=== PATIENT | male | born 1990 | race Asian ===

== ENCOUNTER 2016-04-27 09:24 | Emergency (ER) | payer OTHER ==
[~2016-04-27] VITALS: Ht 165.1 cm; Wt 61.0 kg
[2016-04-27 09:39] VITALS: Ht 165.1 cm; Wt 61.0 kg
--- NOTE | 2016-04-27 10:31 | ERD ---
ER Documentation Chief Complaint Date/Time DATE: 04/27/16 TIME: 10:27 Chief Complaint Complains of right ear pain x 2 days HPI Patient is a 25-year-old male who presents to the ED with right ear pain for 2 days. States his right ear is full and muffled. Denies difficulty hearing. Denies drainage. Denies pain behind his ears. He states that he had a fever 2 days ago. He also complains of runny nose. Denies cough, shortness of breath, chest pain or difficulty breathing. Denies abdominal pain, nausea, vomiting or diarrhea. No other complaints. ROS All systems reviewed and are negative except as per history of present illness. Medications Home Meds Active Scripts Neomycin/Polymyxin/Hydrocort* (Cortisporin* Otic) 10 Ml Susp, 4 DROP RIGHT EAR QID for 7 Days, EA Prov:MATIAS SHETH PA-C 04/27/16 Allergies Allergies: Coded Allergies: No Known Drug Allergy (Verified Adverse Reaction, Unknown, 12/23/11) PMhx/Soc History of Surgery: No Anesthesia Reaction: No Hx Neurological Disorder: No Hx Respiratory Disorders: No Hx Cardiac Disorders: No Hx Psychiatric Problems: No Hx Miscellaneous Medical Probl: No Hx Alcohol Use: No Hx Substance Use: No Hx Tobacco Use: No FmHx Family History: No coronary disease, No diabetes, No other Physical Exam Vitals Vital Signs Date Time Temp Pulse Resp B/P Pulse Ox O2 Delivery O2 Flow Rate FiO2 04/27/16 09:39 98.1 81 20 120/78 100 Physical Exam GENERAL: Well-developed, well-nourished male. Appears in no acute distress. EYES: Pupils are equally reactive bilaterally. EOMs grossly intact. No conjunctival erythema. ENT: Moist mucous membranes. No uvula deviation. No kissing tonsils. No exudates. Right TM has cerumen impaction and TM is not visible. No mastoid tenderness. NECK: Supple. No lymphadenopathy or thyromegaly. No meningismus. negative kernig. negative brudinski. LUNG: Clear to auscultation bilaterally. No rhonchi, wheezing, rales or coarse breath sounds. HEART: Regular rate and rhythm. No murmurs, rubs or gallops. SKIN: Normal color. Warm and dry. No rashes or lesions. Capillary refill < 2 seconds Procedures/MDM ER COURSE: I kept the patient and/or family informed of laboratory and diagnostic imaging results throughout the emergency room course. PROCEDURES: ED ear irrigation. Patient tolerated procedure well with no adverse reaction. MEDICAL DECISION MAKING: This is a 25-year-old male who presents with right ear pain. Vital signs were reviewed. Patient is afebrile. Patient is not hypoxic. Patient is not toxic or ill-appearing. Initially the right ear TM was not V visualized however after ear irrigation patient is feeling much better. He states that the pressure and muffled the sound is much better. After examination of his TM the canal is erythematous. The TM is clear with no bulging or erythema or drainage. He does not have mastoid tenderness. Patient has otitis externa. There is no pain with tragus or pinna. Low suspicion for malignant otitis externa, TM perforation, mastoiditis, acute otitis media. DISCHARGE: At this time, patient is stable for discharge and outpatient management with no new complaints during the ER course. Patient was sent home with []. Patient will be discharged home with instructions to recheck for new or worsening symptoms such as fever, nausea, weakness, LOC and to follow up with primary care in the next 1-2 days. Patient was advised to return to the ER for any new or worsening symptoms. Plan was discussed and patient and/or family understands and agrees. Home instructions were given. Departure Diagnosis: Primary Impression: Cerumen impaction Laterality: right Qualified Code: H61.21 - Impacted cerumen of right ear Additional Impression: Otitis externa Otitis externa type: unspecified type Laterality: right Chronicity: unspecified Qualified Code: H60.91 - Otitis externa of right ear, unspecified chronicity, unspecified type Condition: Stable MATIAS SHETH PA-C Apr 27, 2016 10:31
[2016-04-27] MEDS ORDERED: NPH10OT RIGHT EAR (11:03)
== END 2016-04-27 11:45 | disposition home or self-care (01) ==
LOC: FTE 09:24
DX: H61.21 Impacted cerumen, right ear (principal); H60.91 Unspecified otitis externa, right ear
CPT/HCPCS: 69209; Z7502